=== PATIENT | male | born 1975 | race Caucasian/White ===

== ENCOUNTER → 2017-01-19 | Outpatient (CLI) | payer BC ==
[2017-01-19 15:28] LABS: RED BLOOD COUNT 4.99 M/UL (4.20-5.50); WHITE BLOOD COUNT 6.6 K/UL (4.5-11.0)
[2017-01-19 15:48] LABS: BUN/CREATININE RATIO 16 (0-10)
== END ==
LOC: LAB 14:36
PROVIDERS: Physician Assistant
DX: E03.9 Hypothyroidism, unspecified (principal)
CPT/HCPCS: 36415; 80048; 80061; 80076; 82607; 84443; 85025; 85379

== ENCOUNTER → 2017-02-02 | Outpatient (CLI) | payer BC | LOC: HEART 5 07:45 | DX: I73.9 Peripheral vascular disease, unspecified (principal); R07.9 Chest pain, unspecified; E78.5 Hyperlipidemia, unspecified; Z72.0 Tobacco use; R94.39 Abnormal result of other cardiovascular function study | CPT/HCPCS: 78452; A9502 ==